=== PATIENT | male | born 1955 | race Caucasian/White ===

== ENCOUNTER 2016-07-28 10:04 | Emergency (ER) | payer OTHER ==
--- NOTE | 2016-08-24 08:22 | ER ---
ADMIT: 07/28/2016 RM/LOC: ER [facility] MR#: [id number] [address] [id number] [place] [id number] [address] [place] [id number] Emergency Room Report SEX: M AGE: 61 : 1955 DATE: 07/28/2016 ADDENDUM: This patient comes to the ER because he is having abdominal pain for the last 2 days. The pain is on the left side of his belly. He states he has had chills and sweats. He also feels like when he urinates, he has to put pressure on his belly and this causes him pain. On physical exam, most of his pain is in the left lower and upper quadrant. There is no rebound tenderness or guarding. CT scan showed a diverticulitis. His white count was 11.0. Urinalysis normal. While the patient was here, it was noticed that he had arrhythmia on the monitor. I did consult with Dr. Lizarraga concerning treatment of this patient. We did do an EKG. In the ER, he was given Cipro 500 mg and Flagyl and [place]. We did set him up for a 24-hour Holter monitor, and he is to follow up with his doctor in the next 2 days. He should return to the ER if any shortness of breath or difficulty breathing or fevers or vomiting and not keeping medication down. Please see my T-sheet. GABY Whiteside / Charly Lizarraga MD / nahun JOB #: [id number] CC: Charly Lizarraga MD, Attending Physician Gregory Whitten MD, Family Physician
== END 2016-07-28 14:13 | disposition home or self-care (01) ==
LOC: ER 10:04
DX: K57.92 Diverticulitis of intestine, part unspecified, without perforation or abscess without bleeding (principal); I49.9 Cardiac arrhythmia, unspecified; I10 Essential (primary) hypertension; Z88.2 Allergy status to sulfonamides